=== PATIENT | female | born 2000 | race Caucasian/White ===

== ENCOUNTER 2024-06-01 16:00 | Outpatient (AMB) | payer OTHER, SELFPAY ==
--- NOTE | 2024-06-01 16:07 | A.OFFPC_ITS ---
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 Required: No Accompanied by: Self / Same As Patient Allergies amoxicillin Allergy (Mild, Verified 06/01/24 16:41) Hives Medication List - Last Reconciled 06/01/24 by Destiny Posey PA-C cetirizine 10 mg PO DAILY clascoterone 1% (Winlevi) 1 appl topical DAILY montelukast 10 mg PO QPM norethindrone-ethin estradiol 1-35 mg-mcg (21) (Nortrel) 1 tab PO DAILY rizatriptan mg PO spironolactone 50 mg PO BID topiramate 100 mg PO DAILY Tobacco use date assessed: 06/01/24 Dental Screening Dental Screen Date: 06/01/24 Did you have a dental visit in the last 12 months?: Yes Did you have a dental problem in the last 6 months where you did not have access to dental care?: No Was dental information given to patient?: Patient has dentist HPI establish care HPI Details The patient is a 24-year-old female presenting published a new primary care provider and to discuss her chronic medical conditions. Patient has a past medical history of chronic migraines, managed with topiramate and spironolactone along with PRN rizatriptan that she has not started. The patient describes migraines as frequent and severe, resistant to current medication regimens, warranting further evaluation including neurology referral and brain imaging, as no previous scans have been conducted. The medication history reveals previously higher doses of spironolactone leading to hypotension and fainting episodes. Accompanying medical conditions include history of controlled asthma, mild seasonal allergies, and acne managed with spironolactone as well. 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 A right shoulder mole has recently become problematic, indicated by bleeding warranting possible dermatologic assessment; and an ENT referral is required for an observed tympanic membrane cyst. 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 - Exercise: Implicitly active due to ret ail job duties; no structured exercise regimen documented. - Family: Single and residing possibly w the [facility] family based on the presence of guardian participation historically in medical appointments. - Medication: Routinely uses spironolact one, topiramate, almotriptan, and combines with a regular oral contraceptive pill. 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 Mother Family history of thyroid problem Social History Housing: House Alcohol intake: current Alcohol intake frequency: holidays/special occasions only Patient Tobacco Use Status: Never used Tobacco service: No Current occupational status: employed Cognitive needs: No Hearing needs: No Vision needs: Yes (rx contacts/glasses) Questionnaire PHQ-9 Over the last 2 weeks, how often have you been bothered by any of the following problems? 1. Little interest or pleasure in doing things: not at all 2. Feeling down, depressed, or hopeless: not at all 3. Trouble falling or staying asleep, or sleeping too much: not at all 4. Feeling tired or having little energy: not at all 5. Poor appetite or overeating: not at all 6. Feeling bad about yourself - or that you are a failure or have let yourself or your family down: not at all 7. Trouble concentrating on things, such as reading the newspaper or watching television: not at all 8. Moving or speaking so slowly that other people could have noticed. Or the opposite - being so fidgety or restless that you have been moving around a lot more than usual: not at all 9. Thoughts that you would be better off or of hurting yourself in some way: not at all Total score: 0 Depression Screening Interpretation: Negative Depression Screening Done: Yes 24668 - PHQ-9 Billing: Yes Source: Developed by Drs. Durga Walters, Tricia Osullivan, Jason Jacobs and colleagues, with an educational jillian from [employer]. Thrive Questionnaire Date Thrive assessed: 06/01/24 I am a: Patient What is your living situation today?: I have a steady place to live Within the past 12 months, did the food you bought not last and you didn't have the money to get more?: Never true Within the past 12 months, did you worry whether your food would run out before you got money to buy more?: Never true Do you have trouble paying for medicines?: No Do you have trouble getting transportation to medical appointments?: No Do you have trouble paying your heating and electricity bill?: No Do you have trouble taking care of your child, family member or friend?: No Do you have trouble with day-to-day activities such as bathing, preparing meals, shopping, managing finances, etc.?: No Are you currently unemployed and looking for a job?: No Are you interested in more education?: No Please select the resources that you would like help with: None THRIVE Score: 0 AUDIT C Alcohol Use Questionnaire (AUDIT-C) 1. How often do you have a drink containing alcohol?: Monthly or less 2. How many drinks containing alcohol do you have on a typical day when you are drinking?: 1 or 2 3. How often do you have six or more drinks on one occasion?: Never Total Score: 1 Score Reviewed/Action Taken: No GEORGE-7 AMB Questionnaire GEORGE-7 Date GEORGE - 7 assessed: 06/01/24 Feeling nervous, anxious, or on edge: 2 = More than half the days Not being able to stop or control worryin = More than half the days Worrying too much about different things: 2 = More than half the days Trouble relaxin = Not at all Being so restless that it is hard to sit still: 0 = Not at all Becoming easily annoyed or irritable: 0 = Not at all Feeling afraid as if something awful might happen: 0 = Not at all Total GEORGE-7 score (0-4 normal; 5-9 mild; 10-14 moderate; 15-21 severe): 6 Source: Developed by Tricia Cxo Kurt Kroenke and colleagues, with an educational jillian from [employer]. GEORGE-7 Assessment Billing GEORGE-7 Assessment Tool: GEORGE-7 Assessment 25643 Review of Systems Const Details: - Respiratory: Denies recent exacerbations of asthma. - Neurological: Reports frequent severe migraines. - Dermatologic: Reports mole on shoulder with recent bleeding. - Cardiovascular: Denies chest pain but has reported past fainting episodes. - Endocrine: Family history of thyroid issues and diabetes. - ENT: Notes tympanic membrane cyst observed, denies ear pain or recurrent ear infection. Physical exam (Primary Care) Vital Signs: Last Vital Signs Temp 97.7 F 06/01/24 16:26 Pulse 84 06/01/24 16:26 Resp 16 06/01/24 16:26 BP 122/80 06/01/24 16:26 Pulse Ox 99 06/01/24 16:26 Oxygen Delivery Method Room Air 06/01/24 16:26 Care Plan Goal for BP management: <130/90 at Goal BMI result Body Mass Index 26.5 BMI Assessment/Plan discussion: High BMI High, discussed plan: lifestyle, weight reduction, dietary, physical activity, alcohol moderation and other Tobacco/Smoking Status: Tobacco use Status Tobacco use date assessed 06/01/24 06/01/24 16:09 Patient Tobacco Use Status Never used Tobacco 06/01/24 16:34 PHQ-9: PHQ-9 Score PHQ-9: Total score 0 06/01/24 16:34 Depression Screening Interpretation: Negative Thrive Assessment: Date of Thrive Assessment Date Thrive assessed 06/01/24 06/01/24 16:09 Const Other: Appearance: Alert. Oriented X3. No acute distress. Head: Normal external exam. Normocephalic. Atraumatic. Eyes: Pupils are equal, round, and reactive to light. Extraocular movements intact. Conjunctiva and sclera normal. Eyelids normal. Ears: External auditory canal normal. Tympanic membranes normal. Noted a large cyst in the ear canal, not on the eardrum. Throat: Pharynx normal. Uvula midline. Moist mucous membranes. Neck: Normal inspection. Neck supple. Full range of motion. No adenopathy. Thyroid Normal. No meningeal signs. No neck mass noted. Cardiovascular: Normal heart rate and rhythm. Heart sound normal. No murmurs noted. Pulses normal throughout. Respiratory: No respiratory distress. Painless inspiration. Breath sounds normal. No wheezes/rales/rhonchi noted. Chest nontender. No accessory muscle usage noted or decreased air movement noted. Abdomen: Soft and nontender. Bowel sounds normal in all 4 quadrants. No distention noted. No organomegaly noted. No visible injury noted. Back: No costovertebral angle tenderness. Full range of motion noted. Skin: Skin warm and dry. Normal skin color. Normal skin turgor. No rashes/lesions/lacerations noted. Noted a mole on the right shoulder that has started bleeding. Extremities: No lower extremity edema. Extremities exhibit normal range of motion. Extremities nontender. History of broken ankles, sometimes experiences swelling. Neuro: Oriented X 3. No motor deficit. No sensory deficit. Reflexes normal. Coding Level of Care Code New Pt Level 4 (06852) Complex EM visit Add On G2211 Diagnoses Establishing care with new doctor, encounter for Z76.89 Migraine headache G43.909 Cervical cancer C53.9 Cyst of ear canal Q18.1 Acne L70.9 Carrier of hemochromatosis HFE gene mutation Z14.8 Skin lesion of right arm L98.9 Family history of diabetes mellitus Z83.3 Overweight with body mass index (BMI) of 26 to 26.9 in adult E66.3; Z68.26 Additional Codes PHQ-9 - 11811 - PHQ-9 Billing: Yes ([id number]) GEORGE-7 Assessment Billing - GEORGE-7 Assessment Tool: GEORGE-7 Assessment 99407 ([id number]) Assessment & Plan Assessment & Plan (1) Establishing care with new doctor, encounter for: Code(s): Z76.89 - Persons encountering health services in other specified circumstances Category: Medical Plan: Patient presenting for her 1st appointment to establish a new primary care provider. (2) Migraine headache: Code(s): G43.909 - Migraine, unspecified, not intractable, without status migrainosus Category: Medical Plan: See neurology for evaluation; order CT scan of brain; consider magnesium for migraine prevention. Patient to continue her spironolactone, topiramate and rizatriptan as prescribed until she is seen by Neurology. Condition is chronic and stable continue to monitor. (3) Cervical cancer: Code(s): C53.9 - Malignant neoplasm of cervix uteri, unspecified Category: Medical Plan: Refer to gynecology for evaluation; arrange for Pap smear. (4) Cyst of ear canal: Code(s): Q18.1 - Preauricular sinus and cyst Category: Medical Plan: Refer to ENT for assessment and CT scan of brain/mastoids. Condition is new and stable will continue to monitor. (5) Acne: Code(s): L70.9 - Acne, unspecified Category: Medical Plan: Maintains current spironolactone regimen for acne. Patient to continue being followed by Dermatology. Condition is chronic and stable continue to monitor. (6) Carrier of hemochromatosis HFE gene mutation: Code(s): Z14.8 - Genetic carrier of other disease Category: Medical Plan: Monitor iron levels; no immediate intervention needed. Condition is chronic and stable continue to monitor. (7) Skin lesion of right arm: Code(s): L98.9 - Disorder of the skin and subcutaneous tissue, unspecified Category: Medical Plan: For bleeding mole patient to follow-up with dermatology as scheduled. Condition is chronic and stable continue to monitor. (8) Family history of diabetes mellitus: Code(s): Z83.3 - Family history of diabetes mellitus Category: Medical Plan: Will assess for diabetes as patient has a family history of diabetes although she denies any acute diabetic related complaints at this time. (9) Overweight with body mass index (BMI) of 26 to 26.9 in adult: Code(s): E66.3 - Overweight; Z68.26 - Body mass index [BMI] 26.0-26.9, adult Category: Medical Plan: Patient to improve her diet and exercise regimen. Condition is chronic and stable continue to monitor. Plan Plan Patient was informed and verbally consented to the use of an ambient scribe for clinic note documentation during this visit. 1. Asthma Asthma stable; no change to medications. 2. Tympanic Membrane Cyst Refer to ENT for assessment and possible imaging. 3. Genetic carrier of other disease Monitor iron levels; no immediate intervention needed. 4. Right Shoulder Mole Dermatology referral for evaluation of bleeding mole. 5. Essential Hypertension Advise morning blood pressure monitoring; consider dosage adjustment of spi ronolactone based on BP readings. 6. Atypical Sexual Development Refer to gynecology for evaluation; arrange for Pap smear. 7. Acne Maintains current spironolactone regimen for acne. 8. Migraine See neurology for evaluation; order CT scan of brain; consider magnesium for migraine prevention. I discussed with the patient the importance of obtaining neurologic assessment due to her chronic migraines and lack of significant relief from current therapy. We reviewed the potential side effects of her existing medications and the rationale for considering a magnesium supplement as preventative therapy for migraines. A CT scan was order to examine potential underlying cerebral causes. We discussed her history of hypotensive episodes linked to spironolactone for acne management and emphasized the importance of monitoring her blood pressure, particularly upon waking. The patient consented to have referrals made to both ENT for a tympanic membrane cyst and dermatology for a suspicious mole. Lastly, we agreed on the necessity of a gynecological consult given her chronic use of contraceptives without a prior Pap smear and the importance of maintaining basilio ance regarding her carrier status for hemachromatosis using monitored iron assessments. Orders: Orders CT head/brain wo IV con Today G43.909 - Migraine, unspecified, not intractable, without status migrainosus Complete Blood Count Auto Diff Today Z00.00 - Encounter for general adult medical examination without abnormal findings Comprehensive Auxier. Panel Fast Today Z00.00 - Encounter for general adult medical examination without abnormal findings C Reactive Protein Today Z00.00 - Encounter for general adult medical examination without abnormal findings Ferritin Today D64.9 - Anemia, unspecified Hemoglobin A1c Today Z00.00 - Encounter for general adult medical examination without abnormal findings IRON PROFILE Today D64.9 - Anemia, unspecified Lipid Panel Today Z00.00 - Encounter for general adult medical examination without abnormal findings Liver Panel Today Z00.00 - Encounter for general adult medical examination without abnormal findings Vitamin A Today Z00.00 - Encounter for general adult medical examination without abnormal findings Vitamin B1 Today Z00.00 - Encounter for general adult medical examination without abnormal findings Zinc Today Z00.00 - Encounter for general adult medical examination without abnormal findings Estrogen Today Z00.00 - Encounter for general adult medical examination without abnormal findings Erythrocyte Sedimentation Rate Today Z00.00 - Encounter for general adult medical examination without abnormal findings Magnesium Today Z00.00 - Encounter for general adult medical examination without abnormal findings TSH reflex Free T4 Today Z00.00 - Encounter for general adult medical examination without abnormal findings Vitamin B12 and Folate Today Z00.00 - Encounter for general adult medical examination without abnormal findings Vitamin D 25-OH Total Today Z00.00 - Encounter for general adult medical examination without abnormal findings Testosterone, Total Today Z00.00 - Encounter for general adult medical examination without abnormal findings Prolactin Today Z00.00 - Encounter for general adult medical examination without abnormal findings Progesterone Today Z00.00 - Encounter for general adult medical examination without abnormal findings CT mastoid Today Q18.1 - Preauricular sinus and cyst 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[employer] GENERATING Referral C53.9 - Malignant neoplasm of cervix uteri, unspecified Neurology Referral G43.909 - Migraine, unspecified, not intractable, without status migrainosus Ear/Nose/Throat Referral Q18.1 - Preauricular sinus and cyst Medications: New cetirizine 10 mg PO DAILY 90 tabs 1RF montelukast 10 mg PO QPM 90 tabs 1RF spironolactone 50 mg PO BID 90 days 180 tabs 1RF topiramate 100 mg PO DAILY 90 tabs 1RF norethindrone-ethin estradiol 1-35 mg-mcg (21) (Nortrel) 1 tab PO DAILY 63 tabs 1RF clascoterone 1% (Winlevi) 1 appl topical DAILY 60 grams 1RF Patient Instructions: - Monitor your blood pressure in the morning regularly; adjust medication based on readings as advised. - Attend neurology consultation for further migraine management. - Schedule and attend dermatology appointment regarding the bleeding mole. - Follow up with ENT for evaluation of the cyst in your ear. - Make an appointment with the ordnance truck installation supervisor recommended for a woman?s examination. - Consider supplementing with magnesium as discussed for migraine prevention. - Continue with your current acne medication, taking care to note any side effects. - Make sure you go for your lab tests at any local labs suggested when fasting. - Return in three months for a follow-up on your blood pressure and migraine management. - Maintain a healthy lifestyle and monitor for any new symptoms.
[2024-06-01 16:26] VITALS: BP 122/80; PULSE 84; RESP 16; TEMP 36.5; O2SAT 99; BMI 26.5
--- OUTSIDE RECORDS SUMMARY | 2024-06-01 18:39 | XMS_ITS | Encounter Summary ---
Author Organization [facility] Address [address] [place] [address] Phone Care Team Providers Care Reservations Sales Supervisor Name Role Phone Catherine Aj MD Primary Care Provider Reason for Visit * Reason Comments Med Refill Encounter Details Date Type Department Care Team (Late st Contact Info) Description 08/14/2018 Refill [facility] [address] [place] [address] Betsy Chauhan, DO Concussion without loss of consciousness, subsequent encounter Social History Tobacco Use Types Packs/Day Years Used Date Smoking Tobacco: Never Comments:Never Smoker Alcohol Use Standard Drinks/Week Comments No 0 (1 standard drink = 0.6 oz pur e alcohol) Comments Unknown Sex and Gender Information Value Date Recorded Sex Assigned at Not on file Legal Sex Female 6:35 PM EDT Gender Identity Not on file Sexual Orientation Straight 10/14/2018 2: 58 PM EDT documented as of this encounter Miscellaneous Notes * Telephone Encounter - Sadia Bal LPN - 08/14/2018 1:20 PM EDT Last [facility] 10/08/17 Next appt scheduled for 10/14/18 documented in this encounter Plan of Treatment Not on file documented as of this encounter Visit Diagnoses Diagnosis Concussion without loss of consciousness, subsequent encounter documented in this encounter Care Teams Reservations Sales Supervisor Relationship Specialty Start Date End Date Catherine Aj MD PCP - General Pediatrics 05/26/20 documented as of this encounter
--- OUTSIDE RECORDS SUMMARY | 2024-06-01 18:39 | XMS_ITS | Encounter Summary ---
Author Organization [facility] Address [address] [place] [address] Phone Care Team Providers Care Fur Dyer Name Role Phone Catherine Aj MD Primary Care Provider [phone] Reason for Visit * Reason Comments Med Refill Encounter Details Date Type Department Care Team (Late st Contact Info) Description 09/01/2018 Refill [facility] [address] [place] [address] Betsy Chauhan DO Other headache syndrome; Dysmenorrhea Social History Tobacco Use Types Packs/Day Years [...] PM EDT documented as of this encounter Plan of Treatment Not on file documented as of this encounter Visit Diagnoses Diagnosis Other headache syndrome Dysmenorrhea documented in this encounter Care Teams Fur Dyer Relationship Specialty Start Date End Date Catherine Aj MD PCP - General Pediatrics 05/26/20 documented as of this encounter
--- OUTSIDE RECORDS SUMMARY | 2024-06-01 18:39 | XMS_ITS | Encounter Summary ---
Author Organization [facility] Address [address] [place] [address] Phone Care Team Providers Care Centerless Grinding Machine Adjuster Name Role Phone Catherine Aj MD Primary Care Provider [phone] Reason for Visit * Reason Onset Date Comments Med Refill Med Refill 03/27/2018 Encounter Details Date Type Department Care Team (Late st Contact Info) Description 02/15/2018 Refill [facility] [address] [place] [address] Betsy Chauhan, Social History Tobacco Use Types Packs/Day Years [...] encounter Miscellaneous Notes * Telephone Encounter - Radha Berkowitz MA - 02/16/2018 8:34 AM EST Pt needs the increased dose of 10 mg. Pt is 17 yrs of age. MQ documented in this encounter Plan of Treatment Not on file documented as of this encounter Visit Diagnoses Not on filedocumented in this encounter Care Teams Centerless Grinding Machine Adjuster Relationship Specialty Start Date End Date Catherine Aj MD PCP - General Pediatrics 05/26/20 documented as of this encounter
--- OUTSIDE RECORDS SUMMARY | 2024-06-01 18:39 | XMS_ITS | Encounter Summary ---
Author Organization [facility] Address [address] [place] [address] Phone Care Team Providers Care Criminal Research Specialist Name Role Phone Catherine Aj MD Primary Care Provider [phone] Encounter Details Date Type Department Care Team (Late st Contact Info) Description 10/29/2012 Conversion Encounter [facility] [address] [facility] [place] [id number] Social History Tobacco Use Types Packs/Day Years Used Date Smoking Tobacco: Never Assessed Comments Unknown Sex and Gender Information Value Date Recorded Sex Assigned at Not on file Legal Sex Female 6:35 PM EDT Gender Identity Not on file Sexual Orientation Straight 10/14/2018 2: 58 PM EDT documented as of this encounter Plan of Treatment Not on file documented as of this encounter Visit Diagnoses Not on filedocumented in this encounter Care Teams Criminal Research Specialist Relationship Specialty Start Date End Date Catherine Aj MD PCP - General Pediatrics 05/26/20 documented as of this encounter
--- OUTSIDE RECORDS SUMMARY | 2024-06-01 18:39 | XMS_ITS | Clinical Summary ---
Author Organization [facility] Address [address] [place] [address] Phone Care Team Providers Care Looper Operator Name Role Phone Catherine Aj MD Primary Care Provider [phone] Allergies Active Allergy Reactions Criticality Noted Date Comments Amoxicillin Rash Low 04/05/2017 Dust Mite Extract Gramineae Pollens 10/08/2017 Molds & Smuts Pollen Extract Medications albuterol HFA (VENTOLIN HFA) 108 (90 Base) MCG/ACT inhaler Inhale 90 mcg. 07/17/19 16 Active acetaminophen 500 MG tablet Take 500 mg by mouth every 6 (six) hours as needed for mild pain. Active albuterol (2.5 MG/3ML) 0.083% nebulizer solutionIndicatio ns:Mild intermittent asthma with exacerbation Take 3 mL (2.5 mg total) by nebulization every 4 (four) hours as needed for wheezing or shortness of breath. 1 Package 1 11/05/19 19 Active Dapsone (Aczone) 7.5 % gelIndications:Ot her acne Apply 1 application topically daily. 60 g 2 02/22/19 20 Active gentamicin 0.3 % ophthalmic solutionIndicatio ns:Chalazion of right upper eyelid Administer 1 drop into the right eye 4 (four) times a day. 5 mL 12/17/19 20 Active norethindrone-eth inyl estradiol (Nortrel , 28,) 1-35 MG-MCG per tabletIndications :Encounter for surveillance of contraceptive pills Take 1 tablet by mouth once daily. 84 tablet 3 01/05/20 Active cetirizine 10 MG tabletIndications :Seasonal allergic rhinitis due to other allergic trigger TAKE ONE TABLET BY MOUTH EVERY DAY 30 tablet 3 06/08/19 Active topiramate 25 MG tabletIndications :Migraine without aura and without status migrainosus, not intractable Take 1 tablet (25 mg total) by mouth once daily. Along with the 50 mg tablet 30 tablet 3 06/30/19 Active topiramate 50 MG tabletIndications :Intractable chronic migraine without aura and without status migrainosus Take 1 tablet (50 mg total) by mouth once daily. 30 tablet 3 06/30/19 21 Active propranolol 10 MG tabletIndications :Post-concussion headache Take 1 tablet (10 mg total) by mouth 2 (two) times a day. 60 tablet 2 07/29/19 Active spironolactone 100 MG tabletIndications :Other acne Take 1 tablet (100 mg total) by mouth once daily. 30 tablet 3 08/12/19 Active montelukast 10 MG tabletIndications :Non-seasonal allergic rhinitis due to other allergic trigger Take 1 tablet (10 mg total) by mouth nightly. 30 tablet 3 08/12/19 21 Active Active Problems Patient Care Coordination No te Formatting of this note migh t be different from the original. Tcm to book asthma recheck appt no answer vm left. -vb 05/27/19 Problem Noted Date Diagnosed Date Migraine with aura 06/18/2017 Overview (10/14/2017): Classic migraine (346.00) Onset: 06/18/2017 Added by: Betsy Chauhan Assessment & Plan (01/05/2020 10:10 PM EST): Stable on 75 mg of Topamax Assessment & Plan (10/14/2017 1:36 PM EDT): Controlled on Topamax Generalized anxiety disorder 03/13/2016 Overview (10/14/2017): Anxiety, generalized (300.02) Onset: 03/13/2016 Added by: Franny Jimenes Other acne 11/11/2015 Overview (10/14/2017): Acne (706.1) Onset: 11/11/2015 Added by: Betsy Chauhan Other atopic dermatitis and related conditions 0 04/26/2014 Overview (10/14/2017): Eczema (691.8) Onset: 04/26/2014 Added by: Ashlee Leyva Extrinsic asthma 02/05/2013 Overview (10/14/2017): Asthma (493.00) Onset: 02/05/2013 Added by: Dalia Piña Immunizations Immunization Administration Dates Next Due DTaP 5 05/23/2006, 3,2001,08/24,2001 HPV, Quadrivalent 02/05/2013,09/28/2012,07/25/19 13 Hep B, ped/adol 01/04/2002,2001,2001 Hib (PRP-T) 06/14/2002, 2,2001,06/11 IPV 05/23/2006, 3,2001,06/11 Influenza, injectable, quadr ivalent, preservative free 12/17/2019,01/01/2014,01/08/2013 Influenza, injectable, trivalent 12/19/2011,11/10 MMR 05/29/2005,06/14/2002 Meningococcal Conj (Menactra) MCV4P 10/14/2018,0 07/24/2012 Pneumococcal Conjugate 10/12/2002,2001,2001,06/11 Tdap 06/22/2012 Varicella 05/26/2008,04/08/2002 Family History Medical History Relation Name Comments Hemochromatosis Father Holden Heart disease (Premature) Maternal Grandfather No Known Problems Maternal Grandmother Asthma Mother Vida Heart disease (Premature) Paternal Grandfather No Known Problems Paternal Grandmother Asthma Sister Breanna Relation Name Status Comments Father Vincent Alive Maternal Grandfather Maternal Grandmother Mother Vida Alive Paternal Grandfather Paternal Grandmother Sister Breanna Alive Social History Tobacco Use Types Packs/Day Years Used Date Smoking Tobacco: Never Tobacco Cessation:Counseling Given: No Comments:Never Smoker Alcohol Use Standard Drinks/Week Comments No 0 (1 standard drink = 0.6 oz pur e alcohol) Hunger/Food Answer Date Recorded In the last 12 months, did y ou or your family ever eat less than you felt you should because there wasn't enough money for food? No 01/05/2020 Stable Housing Answer Date Recorded Are you worried that in the next 2 months you may not have stable housing? No 01/05/2020 Transportation Concerns Answer Date Rec orded In the last 12 months, have you or your family ever had to go without healthcare because you didn't have a way to get there? No 01/05/2020 Hazards in Home Answer Date Recorded Think about the place you li ve. Do you have problems with any of the following? Pests (mice or roaches), mold, no/not working smoke detectors, water leaks, no window guards. No 2019 Financing Utilities Answer Date Recorde d In the last 12 months, has t he electric, gas, oil, or water company threatened to shut off your services in your home? No 01/05/2020 Safety at Home Answer Date Recorded Are you or your family worried about feeling saf e in your home? No 01/05/2020 Outside Support Answer Date Recorded Do you feel that you need mo re support from other people or programs to help you care for yourself or your family? No 01/05/2020 Understanding Health Concerns Answer Da te Recorded Do you need help understandi ng your or your child's healthcare needs (diagnosis, medications, plan, etc.)? No 01/05/2020 Financing Health Concerns Answer Date R ecorded In the last 12 months, was t here a time when your child needed to see a doctor or get medications or supplies but could not because of cost? No 01/05/2020 Missing School or Work Answer Date Sam rded Did you or your child miss s chool or work because of a health problem that could have been avoided? No 01/05/2020 Comments No Sex and Gender Information Value Date Recorded Sex Assigned at Not on file Legal Sex Female 6:35 PM EDT Gender Identity Not on file Sexual Orientation Straight 10/14/2018 2: 58 PM EDT Last Filed Vital Signs Vital Sign Reading Time Taken Comments Blood Pressure 100/72 01/05/2020 9:56 AM EST Pulse 87 01/05/2020 9:56 AM EST Temperature 36.2 ??C (97.2 ??F) 01/05/2020 9:56 AM ES T Respiratory Rate - - Oxygen Saturation 99% 11/04/2018 3:12 PM EDT Inhaled Oxygen Concentration - - Weight 62.7 kg (138 lb 4.8 oz) 01/05/2020 9:56 A M EST Height 160 cm (5' 3 ) 01/05/2020 9:56 AM EST Body Mass Index 24.5 01/05/2020 9:56 AM EST Plan of Treatment Health Maintenance Due Date Last Done Comments Men B Vaccine (1 of 2 - Standard) 2017 DTaP,Tdap,and Td Vaccines (7 - Td or Tdap) 06/22/2022 06/22/2012, 05/23/2006, 10/12/2002, Additional history exists Influenza Vaccines (#1) 2023 12/17/19, 01/01/2014, 01/08/2013, Additional history exists COVID-19 Vaccine ( season) 2023 Hepatitis B Vaccines Completed 01/04/2002, 2001, 2001 HIB Vaccines Completed 06/14/2002, 09/12, 2001, Additional history exists Pneumococcal Vaccine Completed 10/12/2002, 2001, 2001, Additional history exists MMR Vaccines Completed 05/29/2005, 06/14/2002 IPV Vaccines Completed 05/23/2006, 03/2002, 2001, Additional history exists Varicella Vaccines Completed 05/26/2008, 04/08/2002 HPV Vaccines Completed 02/05/2013, 09/10, 07/24/2012 Meningococcal Vaccine Completed 10/14/2018, 013 Hepatitis A Vaccines Aged Out No long er eligible based on patient's age to complete this topic Procedures * Due to [place] state law, this organization might not be sharing sensitive test results. Procedure Name Priority Date/Time Associated Diagnosis Comments CHLAMYDIA GC AMP PROBE Routine 01/05/2020 10:05 AM EST Well adult exam from Last 3 Months or Most Recently Relevant to Health Maintenance Results * Due to [place] state law, this organization might not be sharing sensitive test results. * CHLAMYDIA GC AMP PROBE (01/05/2020 10:05 AM EST) Chlamydia Trachomatis, Amplified NEGATIVE (NEG) [facility] Comment: No Chlamydia Trachomatis RNA detected in this patient's sample ? (REFERENCE RANGE/NORMAL VALUE: NOT DETECTED) ? Note: This test uses union laborer- mediated amplification method to detect rRNA from C. Trachomatis N.GONORRHOEAE AMP PROBE NEGATIVE (NEG) [facility] Comment: No Neisseria Gonorrhoeae RNA detected in this patient's sample ? (REFERENCE RANGE/NORMAL VALUE: NOT DETECTED) ? NOTE: This test uses union laborer-mediated amplification method to detect rRNA from N.Gonorrhoeae. A negative result does not preclude infection. In the case of a negative urine result, testing of an endocervical(female) or urethral (male) specimen is recommended if there is high clinical suspicion of infection. Due to very high sensitivity of Nucleic Acid Amplification Test, false positive results may occur. Therefore, specimen handling is extremely important. In patients in whom the disease is unlikely, additional sample for testing should be considered after an initial positive result. The performance characteristics of this test have not been evaluated in children. The Aptima Combo2 assay is not intended for the evaluation of suspected sexual abuse or for other medico-legal indications. The ordering provider should assess if the patient had consensual sex without risk of sexual abuse. Consult the [facility] if needed. Contact phone number . Therapeutic failure or success cannot be determined with the Aptima Combo2 assay since nucleic acid may persist following appropriate antimicrobial therapy. The Centers for Disease Control and Prevention (CDC) recommends confirmatory retesting using culture or a different nucleic acid amplification test when positive results occur, if indicated. CHLAM/GC AMP PROBE SPEC TYPE VAGINAL SPECIMEN [facility] Comment: Testing performed or reported by [facility], [facility], a Service of [facility], [place] [address] Pasha Whitaker MD, Salvage Winder Swab (Vagina) 01/05/2020 10: 05 AM EST 01/06/2020 12:30 AM EST Betsy Chauhan DO LAB MICROBIOLOGY - GENERAL ORDE JENNY Final Result [facility] from Last 3 Months or Most Recently Relevant to Health Maintenance Insurance [facility] [address] Care Teams Looper Operator Relationship Specialty Start Date End Date Catherine Aj MD PCP - General Pediatrics 05/26/20
--- OUTSIDE RECORDS SUMMARY | 2024-06-01 18:39 | XMS_ITS | Encounter Summary ---
Author Organization [facility] Address [address] [place] [address] Phone Care Team Providers Care Erp Project Manager Name Role Phone Catherine Aj MD Primary Care Provider [phone] Reason for Visit * Reason Comments Med Refill Encounter Details Date Type Department Care Team (Late st Contact Info) Description 08/21/2017 Refill [facility] [address] [place] [address] Betsy Chauhan, Encounter for surveillance of contraceptive pills (Primary Dx) Social History Tobacco Use Types Packs/Day Years Used Date Smoking Tobacco: Never Comments:Never Smoker Comments Unknown Sex and Gender Information Value Date Recorded Sex Assigned at Not on file Legal Sex Female 6:35 PM EDT Gender Identity Not on file Sexual Orientation Straight 10/14/2018 2: 58 PM EDT documented as of this encounter Miscellaneous Notes * Telephone Encounter - Sabiha Jamil LPN - 08/21/2017 1:21 PM EDT [facility] request a med r/f on pts ocp Last [facility] 09/29/16 Please send script to stop [facility] fortino Rodarte LPN documented in this encounter Plan of Treatment Not on file documented as of this encounter Visit Diagnoses Diagnosis Encounter for surveillance of contraceptive pills- Primary documented in this encounter Care Teams Erp Project Manager Relationship Specialty Start Date End Date Catherine Aj MD PCP - General Pediatrics 05/26/20 documented as of this encounter
--- OUTSIDE RECORDS SUMMARY | 2024-06-01 18:39 | XMS_ITS | Encounter Summary ---
Author Organization [facility] Address [address] [place] [address] Phone Care Team Providers Care Metal Numerical Tool Programmer Name Role Phone Catherine Aj MD Primary Care Provider [phone] Reason for Visit * Reason Comments Med Refill Encounter Details Date Type Department Care Team (Late st Contact Info) Description 11/29/2017 Refill [facility] [address] [place] [address] Betsy Chauhan, Social History Tobacco Use Types [...] on filedocumented in this encounter Care Teams Metal Numerical Tool Programmer Relationship Specialty Start Date End Date Catherine Aj MD PCP - General Pediatrics 05/26/20 documented as of this encounter
--- OUTSIDE RECORDS SUMMARY | 2024-06-01 18:39 | XMS_ITS | Encounter Summary ---
Author Organization [facility] Address [address] [place] [address] Phone Care Team Providers Care Spd Manager Name Role Phone Catherine Aj MD Primary Care Provider [phone] Reason for Visit * Reason Comments Med Refill Encounter Details Date Type Department Care Team (Late st Contact Info) Description 11/05/2018 Refill [facility] [address] [place] [address] Betsy Chauhan DO Non-seasonal allergic rhinitis due to other allergic trigger Social History Tobacco Use Types Packs/Day Years Used Date Smoking Tobacco: Never Comments:Never Smoker Alcohol Use Standard Drinks/Week Comments No 0 (1 standard drink = 0.6 oz pur e alcohol) Hunger/Food Answer Date Recorded No 10/14/2018 Stable Housing Answer Date Recorded 0 10/14/2018 Transportation Concerns Answer Date Rec orded No 10/14/2018 Hazards in Home Answer Date Recorded No 10/14/2018 Financing Utilities Answer Date Recorde d No 10/14/2018 Safety at Home Answer Date Recorded No 10/14/2018 Outside Support Answer Date Recorded No 10/14/2018 Understanding Health Concerns Answer Da te Recorded No 10/14/2018 Financing Health Concerns Answer Date R ecorded No 10/14/2018 Missing School or Work Answer Date Sam rded No 10/14/2018 Comments Unknown Sex and Gender Information Value Date Recorded Sex Assigned at Not on file Legal Sex Female 6:35 PM EDT Gender Identity Not on file Sexual Orientation Straight 10/14/2018 2: 58 PM EDT documented as of this encounter Miscellaneous Notes * Telephone Encounter - Sadia Bal LPN - 11/06/2018 7:59 AM EDT Last [facility] 10/14/18 documented in this encounter Plan of Treatment Not on file documented as of this encounter Visit Diagnoses Diagnosis Non-seasonal allergic rhinitis due to other allergic trigger documented in this encounter Care Teams Spd Manager Relationship Specialty Start Date End Date Catherine Aj MD PCP - General Pediatrics 05/26/20 documented as of this encounter
--- OUTSIDE RECORDS SUMMARY | 2024-06-01 18:39 | XMS_ITS | Encounter Summary ---
Author Organization [facility] Address [address] [place] [address] Phone Care Team Providers Care Marketing Finance Manager Name Role Phone Catherine Aj MD Primary Care Provider [phone] Reason for Visit * Reason Comments Med Refill Encounter Details Date Type Department Care Team (Late st Contact Info) Description 02/12/2020 Refill [facility] [address] [place] [address] Betsy Chauhan, Intractable chronic migraine without aura and without status migrainosus Social History Tobacco Use Types Packs/Day Years [...] could have been avoided? No 01/05/2020 Comments Unknown Sex and Gender Information Value Date Recorded Sex Assigned at Not on file Legal Sex Female 6:35 PM EDT Gender Identity Not on file Sexual Orientation Straight 10/14/2018 2: 58 PM EDT documented as of this encounter Plan of Treatment Not on file documented as of this encounter Visit Diagnoses Diagnosis Intractable chronic migraine without aura and without status migrainosus documented in this encounter Care Teams Marketing Finance Manager Relationship Specialty Start Date End Date Catherine Aj MD PCP - General Pediatrics 05/26/20 documented as of this encounter
--- OUTSIDE RECORDS SUMMARY | 2024-06-01 18:39 | XMS_ITS | Encounter Summary ---
Author Organization [facility] Address [address] [place] [address] Phone Care Team Providers Care School Curriculum Developer Name Role Phone Catherine Aj MD Primary Care Provider [phone] Reason for Visit * Reason Comments Med Refill Encounter Details Date Type Department Care Team (Late st Contact Info) Description 07/16/2018 Refill [facility] [address] [place] [address] Betsy Chauhan DO Dysmenorrhea; Other headache syndrome Social History Tobacco Use Types Packs/Day Years [...] encounter Miscellaneous Notes * Telephone Encounter - Suyapa Whitmore [place] - 07/17/2018 12:19 PM EDT Last [facility] 10/08/17 Medication is due documented in this encounter Plan of Treatment Not on file documented as of this encounter Visit Diagnoses Diagnosis Dysmenorrhea Other headache syndrome documented in this encounter Care Teams School Curriculum Developer Relationship Specialty Start Date End Date Catherine Aj MD PCP - General Pediatrics 05/26/20 documented as of this encounter
--- OUTSIDE RECORDS SUMMARY | 2024-06-01 18:39 | XMS_ITS | Encounter Summary ---
Author Organization [facility] Address [address] [place] [address] Phone Care Team Providers Care Nursery Helper Name Role Phone Catherine Aj MD Primary Care Provider [phone] Reason for Visit * Reason Comments Med Refill Encounter Details Date Type Department Care Team (Late st Contact Info) Description 10/13/2018 Refill [facility] [address] [place] [address] Betsy Chauhan DO Other acne; Intractable chronic migraine without aura and without [...] of this encounter Visit Diagnoses Diagnosis Other acne Intractable chronic migraine without aura and without status migrainosus documented in this encounter Care Teams Nursery Helper Relationship Specialty Start Date End Date Catherine Aj MD PCP - General Pediatrics 05/26/20 documented as of this encounter
--- OUTSIDE RECORDS SUMMARY | 2024-06-01 18:39 | XMS_ITS | Encounter Summary ---
Author Organization [facility] Address [address] [place] [address] Phone Care Team Providers Care Manager Inpatient Name Role Phone Catherine Aj MD Primary Care Provider [phone] Reason for Visit * Reason Comments Med Refill Encounter Details Date Type Department Care Team (Late st Contact Info) Description 10/25/2019 Refill [facility] [address] [place] [address] Betsy Chauhan DO Mild intermittent asthma with exacerbation Social History Tobacco Use Types Packs/Day Years Used Date Smoking Tobacco: Never Comments:Never Smoker Alcohol Use Standard Drinks/Week Comments No 0 (1 standard drink = 0.6 oz pur e alcohol) Hunger/Food Answer Date Recorded No 10/14/2018 Stable Housing Answer Date Recorded No 02/11/2019 Transportation Concerns Answer Date Rec orded No [...] as of this encounter Visit Diagnoses Diagnosis Mild intermittent asthma with exacerbation Unspecified asthma, with exacerbation documented in this encounter Care Teams Manager Inpatient Relationship Specialty Start Date End Date Catherine Aj MD PCP - General Pediatrics 05/26/20 documented as of this encounter
== END 2024-06-01 17:03 | disposition home or self-care (01) ==
LOC: HO.HMCSH 16:00
PROVIDERS: PCP Internal Medicine; Visit Provider Physician Assistant Medical
DX: Z76.89 Persons encountering health services in other specified circumstances (principal); G43.909 Migraine, unspecified, not intractable, without status migrainosus; C53.9 Malignant neoplasm of cervix uteri, unspecified; Q18.1 Preauricular sinus and cyst; L70.9 Acne, unspecified; Z14.8 Genetic carrier of other disease; L98.9 Disorder of the skin and subcutaneous tissue, unspecified; Z83.3 Family history of diabetes mellitus; E66.3 Overweight; Z68.26 Body mass index [BMI] 26.0-26.9, adult

== ENCOUNTER → 2024-06-01 16:00 | Outpatient (BNVA) | payer OTHER, SELFPAY | PROVIDERS: PCP Internal Medicine; Visit Provider Physician Assistant Medical | DX: Z76.89 Persons encountering health services in other specified circumstances (principal); G43.909 Migraine, unspecified, not intractable, without status migrainosus; C53.9 Malignant neoplasm of cervix uteri, unspecified; L70.9 Acne, unspecified; L98.9 Disorder of the skin and subcutaneous tissue, unspecified; J45.909 Unspecified asthma, uncomplicated; E66.3 Overweight; Z68.26 Body mass index [BMI] 26.0-26.9, adult; Q18.1 Preauricular sinus and cyst; Z14.8 Genetic carrier of other disease; Z83.3 Family history of diabetes mellitus | CPT/HCPCS: 96127 ==

== ENCOUNTER 2024-06-19 11:08 | Outpatient (REF) | payer OTHER, SELFPAY ==
[2024-06-19 14:10] LABS: MANUAL DIFF FLAG NO
[2024-06-19 14:13] LABS: Basophils Percent Auto 0.6 % (0-2); Eosinophils Absolute Auto 0.2 X10*3/uL (0.0-0.4); Eosinophils Percent Auto 3.5 % (0-4); Hematocrit 39.9 % (37.0-47.0); Hemoglobin 13.1 g/dl (12.0-16.0); Lymphocytes Absolute Auto 2.5 X10*3/uL (1.2-4.9); Mean Corpuscular HGB Conc 32.8 g/dl (31.0-35.0); Mean Corpuscular Hemoglobin 29.4 pg (27.0-33.0); Mean Corpuscular Volume 89.5 fL (80.0-98.0); Mean Platelet Volume 11.5 fL (9.4-12.3); Monocytes Absolute Auto 0.3 X10*3/uL (0.1-1.2); Monocytes Percent Auto 5.2 % (2-11); Neutrophils Absolute Auto 2.2 x10*3/uL (2.0-8.3); Neutrophils Percent Auto 41.7 % (45-73); Platelet Count 265 X10*3/uL (160-400); Red Blood Count 4.46 X10*6/uL (4.20-5.50); Red Cell Distribution Width 12.6 % (11.0-16.0); White Blood Count 5.2 X10*3/uL (4.8-10.8)
[2024-06-19 14:22] LABS: Estimated Average Glucose 97 mg/dL; Hemoglobin A1C 110.1096 umol/L
[2024-06-19 14:31] LABS: Alanine Aminotransferase 14 U/L (0-31); Alkaline Phosphatase 37 U/L (39-117); Anion Gap 13 (12-20); Aspartate Amino Transferase 18 U/L (5-31); Bilirubin Direct 0.3 mg/dL (0.0-0.5); Bilirubin Total 1.1 mg/dL (0.0-1.0); Blood Urea Nitrogen 13 mg/dL (9-16); C Reactive Protein 0.15 mg/dL (< or = 0.50); Carbon Dioxide 19 mmol/L (22-29); Chloride 111 mmol/L (96-108); Cholesterol 208 mg/dL (<200); Estimated Glomerular Filt Rate > 60; Glucose Fasting 85 mg/dL (60-99); HDL Cholesterol 102 mg/dL (>40); Iron 184 mcg/dL (30-160); LDL Cholesterol Calculated 87 mg/dL (<100); Percent Iron Saturation 53 % (15-50); Sodium 139 mmol/L (135-145); Total Iron Binding Capacity 349 mcg/dL (228-428); Total Protein 7.3 g/dL (6.5-8.0); Triglycerides 99 mg/dL (<150); Unsaturated Iron Binding 165 ug/dL
[2024-06-19 14:51] LABS: Ferritin 31 ng/mL (10-122); Vitamin D 25-OH Total 26.6 ng/mL (>30)
[2024-06-19 14:55] LABS: Erythrocyte Sedimentation Rate 6 MM/HR (0-20)
[2024-06-19 14:58] LABS: Folate 11.1 ng/mL (> or = 4.0); Vitamin B12 429 pg/mL (200-900)
[2024-06-21 21:49] LABS: Prolactin 14.7 ng/mL
[2024-06-23 04:54] LABS: Zinc 73 mcg/dL (60-130)
[2024-06-24 20:42] LABS: Estrogen 93 pg/mL
[2024-06-25 16:58] LABS: Testosterone, Total 19 ng/dL (2-45); Vitamin A 76 mcg/dL (38-98)
[2024-06-27 18:48] LABS: Vitamin B1 16 nmol/L (8-30)
[2024-07-03 23:53] LABS: Progesterone <0.1 ng/mL
== END 2024-06-19 11:09 | disposition home or self-care (01) ==
LOC: HO.HMGCLDS 11:08
PROVIDERS: PCP Physician Assistant Medical; Visit Provider Physician Assistant Medical
DX: Z00.00 Encounter for general adult medical examination without abnormal findings (principal); D64.9 Anemia, unspecified; Z13.1 Encounter for screening for diabetes mellitus; Z13.6 Encounter for screening for cardiovascular disorders
CPT/HCPCS: 36415; 80053; 80061; 80076; 82248; 82306; 82607; 82672; 82728; 82746; 83036; 83540; 83735; 84144; 84146; 84403; 84425; 84443; 84590; 84630; 85025; 85652; 86140

== ENCOUNTER 2024-07-06 16:33 | Outpatient (REF) | payer OTHER, SELFPAY | END 2024-07-06 16:34 | disposition home or self-care (01) | LOC: HO.CT 16:33 | PROVIDERS: PCP Physician Assistant Medical; Visit Provider Physician Assistant Medical | DX: Z13.89 Encounter for screening for other disorder (principal) ==

== ENCOUNTER → 2024-09-03 10:28 | Outpatient (BNV) | payer OTHER, SELFPAY | PROVIDERS: PCP Internal Medicine; Referring Provider Internal Medicine; Visit Provider Internal Medicine | DX: E83.110 Hereditary hemochromatosis (principal) | CPT/HCPCS: 99204 ==

== ENCOUNTER 2024-09-10 13:09 | Outpatient (AMB) | payer OTHER, SELFPAY ==
--- OUTSIDE RECORDS SUMMARY | 2024-09-10 13:10 | XMS_ITS | Clinical Summary ---
Author Organization [facility] Address [address] [address] Phone Care Team Providers Care Radius Corner Machine Operator Name Role Phone Betsy Chauhan DO Primary Care Provider [phone] Allergies Active Allergy Reactions Criticality Noted Date Comments Amoxicillin Rash Low 04/05/2017 Bee Pollen 04/10/2020 Grass Pollen-Red Top, Standard 10/08 Mite Extract 04/10/2020 Mold 04/10/2020 Medications oseltamivir (TAMIFLU) 75 mg capsule Take 1 capsule (75 mg total) by mouth 2 (two) times a day. 10 capsule 8 Active Additional Information Patient not taking.Reported on 04/10/2020 predniSONE (DELTASONE) 20 MG tablet Take 1 tablet (20 mg total) by mouth daily. 7 tablet 8 Active Additional Information Patient not taking.Reported on 04/10/2020 montelukast (SINGULAIR) 10 mg tablet Active cetirizine (ZYRTEC) 10 MG tablet Active spironolactone (ALDACTONE) 100 MG tablet Active dapsone (ACZONE) 5 % topical gel Active albuterol 2.5 mg /3 mL (0.083 %) nebulizer solution Inhale 2.5 mg into the lungs daily as needed. 9 Active norethindrone-e thinyl estradiol (NORTREL , 28,) 1-0.035 mg per tablet Take 1 tablet by mouth. 0 Active propranoloL (INDERAL) 10 MG immediate release tablet TAKE ONE TABLET BY MOUTH TWICE A DAY 0 Active topiramate (TOPAMAX) 25 MG tablet Take 25 mg by mouth. 1 Active topiramate (TOPAMAX) 50 MG tablet TAKE ONE TABLET BY MOUTH EVERY DAY 1 Active cetirizine (ZYRTEC) 10 MG tablet TAKE ONE TABLET BY MOUTH EVERY DAY 0 Active dapsone (ACZONE) 7.5 % gel with pump Apply 1 application topically. 0 Active montelukast (SINGULAIR) 10 mg tablet TAKE ONE TABLET BY MOUTH AT BEDTIME 1 Active ibuprofen (ADVIL,MOTRIN) 600 MG tablet Take 1 tablet (600 mg total) by mouth 3 (three) times a day for 3 days. Then tid prn pain/inflammatio n 30 tablet 1 Active Active Problems Problem Noted Date Diagnosed Date Migraine with aura 06/18/2017 Overview (04/10/2020): Classic migraine (346.00) Onset: 06/18/2017 Added by: Betsy Chauhan Last Assessment & Plan: Stable on 75 mg of Topamax Generalized anxiety disorder 03/13/2016 Overview (04/10/2020): Anxiety, generalized (300.02) Onset: 03/13/2016 Added by: Franny Jimenes Other acne 11/11/2015 Overview (04/10/2020): Acne (706.1) Onset: 11/11/2015 Added by: Betsy Chauhan Extrinsic asthma 02/05/2013 Overview (04/10/2020): Asthma (493.00) Onset: 02/05/2013 Added by: Dalia Piña Social History Tobacco Use Types Packs/Day Years Used Date Smoking Tobacco: Never Smokeless Tobacco: Never Alcohol Use Standard Drinks/Week Comments No 0 (1 standard drink = 0.6 oz pur e alcohol) Education Answer Date Recorded Are you interested in more education? Not on abran e 06/07/2022 Are you concerned about learning? Not on file 06/07/2022 No 06/07/2022 No 06/07/2022 Digital Access Answer Date Recorded No 07/06/2022 No 07/06/2022 No 07/06/2022 Reliable internet access at home? Not on file 07/06/2022 Device with a working camera? Not on file Comments Unknown Sex and Gender Information Value Date Recorded Sex Assigned at Not on file Legal Sex Female 10:23 PM EDT Gender Identity Not on file Sexual Orientation Not on file Last Filed Vital Signs Vital Sign Reading Time Taken Comments Blood Pressure 105/60 04/10/2020 4:06 PM EST Pulse 62 04/10/2020 4:06 PM EST Temperature 36.9 C (98.5 F) 04/10/2020 4:06 PM EST Respiratory Rate 18 04/10/2020 4:06 PM EST Oxygen Saturation 98% 04/10/2020 4:06 PM EST Inhaled Oxygen Concentration - - Weight 63.5 kg (140 lb) 07/06/2017 1:55 PM EDT Height 157.5 cm (5' 2 ) 07/06/2017 1:55 PM EDT Body Mass Index 25.61 07/06/2017 1:55 PM EDT Plan of Treatment Health Maintenance Due Date Last Done Comments POTASSIUM LEVEL 2001 DEPRESSION SCREENING 2013 SMOKING Hx and SMOKELESS TOBACCO SCREENING 2014 CHLAMYDIA SCREENING 2017 MENINGOCOCCAL VACCINES (B) (1 of 2 - Standard) 2017 HEPATITIS C SCREENING 2019 HIV ONE-TIME SCREENING (18-65 YEARS) 2019 PNEUMOCOCCAL VACCINES (0-49 years) (1 of 2 - PCV) 2020 10/12/2002, 2001, 2001, Additional history exists PAP SMEAR 2022 Adult Td,Tdap Booster 06/22/2022 06/22/2012 COVID-19 VACCINE ( - season) 2023 HIB VACCINES Completed 06/14/2002, 09/12, 2001, Additional history exists HPV VACCINES Completed 02/05/2013, 09/10, 07/24/2012 MENINGOCOCCAL VACCINES (ACWY) Completed 10/14/2018, 07/24/2012 HEPATITIS A VACCINES Aged Out No long er eligible based on patient's age to complete this topic Medical Devices Not on file Insurance O POS EPO O POS EPO [address] [place] [id number] [facility] E[facility] E[facility] POS [facility]PO POS EPO POS EPO [facility] POS EPO Care Teams Radius Corner Machine Operator Relationship Specialty Start Date End Date Betsy hCauhan DO PCP - General Pediatrics 04/10/20 Additional Source Comments The information contained in this document represents components of the legal health record. It is not the complete legal health record.[facility]
--- OUTSIDE RECORDS SUMMARY | 2024-09-10 13:10 | XMS_ITS | Encounter Summary ---
Author Organization [facility] Address [address] [place] [address] Phone Care Team Providers Care Resourcing Advisor Name Role Phone Catherine Aj MD Primary Care Provider [phone] Reason for Visit * Reason Comments Med Refill Encounter Details Date Type Department Care Team (Late st Contact Info) Description 10/13/2018 Refill [facility] [address] [place] [place] [address] Betsy Chauhan DO Other acne; Intractable chronic [...] migrainosus documented in this encounter Care Teams Resourcing Advisor Relationship Specialty Start Date End Date Catherine Aj MD PCP - General Pediatrics 05/26/20 documented as of this encounter
[2024-09-10 13:14] VITALS: BP 111/65; PULSE 74; RESP 14; TEMP 36.5; O2SAT 98; BMI 28.2
--- NOTE | 2024-09-10 13:14 | MHC.PC.OV ---
Vital Signs 09/10/24 13:14 Height 5 ft 2 in Weight 154 lb BMI 28.2 BP 111/65 Respiration 14 Pulse 74 Pulse Source Pulse Oximeter Temp 97.7 F Temp Source Temporal Artery Scan Pulse Oximetry (%) 98 Oxygen Delivery Method Room Air Intake Visit Reasons: 3 month f/u Catheterization Laboratory Technician Required: No Accompanied by: Self / Same As Patient Allergies amoxicillin Allergy (Mild, Verified 09/10/24 14:26) Hives Medication List - Last Reconciled 09/10/24 by Destiny Posey PA-C cetirizine 10 mg PO DAILY cholecalciferol (vitamin D3) 125 mcg PO DAILY clascoterone 1% (Winlevi) 1 appl topical DAILY montelukast 10 mg PO QPM norethindrone-ethin estradiol 1-35 mg-mcg (21) (Nortrel) 1 tab PO DAILY rizatriptan 10 mg PO DAILY spironolactone 50 mg PO BID 90 days topiramate 100 mg PO DAILY tretinoin 0.05% (Retin-A) appl topical Tobacco use date assessed: 09/10/24 Dental Screening Dental Screen Date: 06/01/24 Did you have a dental visit in the last 12 months?: Yes Did you have a dental problem in the last 6 months where you did not have access to dental care?: No Was dental information given to patient?: Patient has dentist HPI 3 month f/u HPI Details The patient is a 24-year-old female presenting for a follow-up visit. The patient has a family history of hereditary hemochromatosis, with her father diagnosed and undergoing therapeutic phlebotomy. Her mother suspects she might be a carrier, though she was informed that both genes were inherited from her father, which was deemed unlikely by the email designer. Recent laboratory tests showed normalization of previously elevated iron levels, with iron decreasing from 184 to 106, total saturation from 53 to 31, and ferritin from 31 to 15. The hematocrit level is slightly below normal at 36.8, with normal being 37. The patient is menstruating, which may prevent iron overload despite being a potential carrier of hemochromatosis. She was advised to avoid iron supplements, excessive alcohol, and red meat as preventative measures. COUNT INCLUDES THE [facility] Medical History High total iron binding capacity Vitamin D deficiency Skin lesion of right arm Family history of diabetes mellitus Acne Overweight with body mass index (BMI) of 26 to 26.9 in adult Establishing care with new doctor, encounter for Carrier of hemochromatosis HFE gene mutation Cyst of ear canal Cervical cancer Migraine headache Surgical History Goodman teeth removed Family History Father No problems noted. Mother Family history of thyroid problem Maternal Grandfather Throat cancer Paternal Grandfather Diabetes Father Hemochromatosis Paternal Uncle Hemochromatosis Family/Other Heart problem Maternal Grandfather Heart problem Social History Housing: House Alcohol intake: current Alcohol intake frequency: holidays/special occasions only Patient Tobacco Use Status: Never used Tobacco service: No Current occupational status: employed Cognitive needs: No Hearing needs: No Vision needs: Yes (rx contacts/glasses) Questionnaire PHQ-9 Over the last 2 weeks, how often have you been bothered by any of the following problems? 1. Little interest or pleasure in doing things: not at all 2. Feeling down, depressed, or hopeless: not at all 3. Trouble falling or staying asleep, or sleeping too much: not at all 4. Feeling tired or having little energy: not at all 5. Poor appetite or overeating: not at all 6. Feeling bad about yourself - or that you are a failure or have let yourself or your family down: not at all 7. Trouble concentrating on things, such as reading the newspaper or watching television: not at all 8. Moving or speaking so slowly that other people could have noticed. Or the opposite - being so fidgety or restless that you have been moving around a lot more than usual: not at all 9. Thoughts that you would be better off or of hurting yourself in some way: not at all Total score: 0 Depression Screening Interpretation: Negative Depression Screening Done: Yes 94616 - PHQ-9 Billing: Yes Source: Developed by Drs. Durga Walters, Tricia Osullivan, Jason Jacobs and colleagues, with an educational jillian from [email or web address]. Thrive Questionnaire Date Thrive assessed: 06/01/24 I am a: Patient What is your living situation today?: I have a steady place to live Within the past 12 months, did the food you bought not last and you didn't have the money to get more?: Never true Within the past 12 months, did you worry whether your food would run out before you got money to buy more?: Never true Do you have trouble paying for medicines?: No Do you have trouble getting transportation to medical appointments?: No Do you have trouble paying your heating and electricity bill?: No Do you have trouble taking care of your child, family member or friend?: No Do you have trouble with day-to-day activities such as bathing, preparing meals, shopping, managing finances, etc.?: No Are you currently unemployed and looking for a job?: No Are you interested in more education?: No Please select the resources that you would like help with: None THRIVE Score: 0 AUDIT C Alcohol Use Questionnaire (AUDIT-C) 1. How often do you have a drink containing alcohol?: Monthly or less 2. How many drinks containing alcohol do you have on a typical day when you are drinking?: 1 or 2 3. How often do you have six or more drinks on one occasion?: Never Total Score: 1 Score Reviewed/Action Taken: No GEORGE-7 AMB Questionnaire GEORGE-7 Date GEORGE - 7 assessed: 06/01/24 Feeling nervous, anxious, or on edge: 2 = More than half the days Not being able to stop or control worryin = More than half the days Worrying too much about different things: 2 = More than half the days Trouble relaxin = Not at all Being so restless that it is hard to sit still: 0 = Not at all Becoming easily annoyed or irritable: 0 = Not at all Feeling afraid as if something awful might happen: 0 = Not at all Total GEORGE-7 score (0-4 normal; 5-9 mild; 10-14 moderate; 15-21 severe): 6 Source: Developed by Drs. Durga Walters, Tricia Osullivan, Jason Jacobs and colleagues, with an educational jillian from [employer] GEORGE-7 Assessment Billing GEORGE-7 Assessment Tool: GEORGE-7 Assessment 88811 Review of Systems Const Details: - General: Denies any acute complaints All systems reviewed & are unremarkable except as noted in HPI and below Physical exam (Primary Care) Vital Signs: Last Vital Signs Temp 97.7 F 09/10/24 13:14 Pulse 74 09/10/24 13:14 Resp 14 09/10/24 13:14 BP 111/65 09/10/24 13:14 Pulse Ox 98 09/10/24 13:14 Oxygen Delivery Method Room Air 09/10/24 13:14 Care Plan Goal for BP management: <140/90 at Goal BMI result Body Mass Index 28.2 BMI Assessment/Plan discussion: High BMI High, discussed plan: lifestyle, weight reduction, dietary, physical activity and alcohol moderation Tobacco/Smoking Status: Tobacco use Status Tobacco use date assessed 09/10/24 09/10/24 13:16 Patient Tobacco Use Status Never used Tobacco 09/10/24 13:16 PHQ-9: PHQ-9 Score PHQ-9: Total score 0 09/10/24 13:23 Depression Screening Interpretation: Negative Thrive Assessment: Date of Thrive Assessment Date Thrive assessed 06/01/24 09/10/24 13:16 Const Other: Appearance: Alert. Oriented X3. No acute distress. Head: Normal external exam. Normocephalic. Atraumatic. Eyes: Pupils are equal, round, and reactive to light. Extraocular movements intact. Conjunctiva and sclera normal. Eyelids normal. Throat: Pharynx normal. Uvula midline. Moist mucous membranes. Neck: Normal inspection. Neck supple. Full range of motion. Cardiovascular: Normal heart rate and rhythm. Respiratory: No respiratory distress. Painless inspiration. Back: Full range of motion noted. Skin: Skin warm and dry. Normal skin color. Extremities: Extremities exhibit normal range of motion. Results Reviewed Results Reviewed: - Labs: CBC normal, iron levels normalized, hematocrit slightly below normal at 36.8 Coding Level of Care Code Est Pt Level 4 (78887) Complex EM visit Add On G2211 Diagnoses Carrier of hemochromatosis HFE gene mutation Z14.8 Additional Codes GEORGE-7 Assessment Billing - GEORGE-7 Assessment Tool: GEORGE-7 Assessment 17994 ([id number]) PHQ-9 - 36681 - PHQ-9 Billing: Yes ([id number]) Assessment & Plan Assessment & Plan (1) Carrier of hemochromatosis HFE gene mutation: Code(s): Z14.8 - Genetic carrier of other disease Category: Medical Plan: The patient has a family history of hereditary hemochromatosis, with her father undergoing therapeutic phlebotomy. She was advised to avoid iron supplements, excessive alcohol, and red meat to prevent iron overload. Follow-up in three months was recommended to monitor her condition. Plan Plan Patient was informed and verbally consented to the use of an ambient scribe for clinic note documentation during this visit. 1. Family History Of Hereditary Hemochromatosis The patient has a family history of hereditary hemochromatosis, with her father undergoing therapeutic phlebotomy. She was advised to avoid iron supplements, excessive alcohol, and red meat to prevent iron overload. Follow-up in three months was recommended to monitor her condition. During the visit, we discussed the patient's family history of hereditary hemochromatosis and the importance of monitoring her iron levels. I advised her to avoid iron supplements, excessive alcohol, and red meat to prevent potential iron overload. She is following up with hematology in three months to reassess her condition and adjust the management plan as necessary. She is following up with us yearly. Although she will call us if she needs any sooner appointments. Patient Instructions: - Avoid iron supplements, excessive alcohol, and red meat. - Schedule a follow-up appointment in three months. - Contact the clinic if any new symptoms arise or if there are questions about the condition.
== END 2024-09-10 13:37 | disposition home or self-care (01) ==
LOC: HO.HMCSH 13:09
PROVIDERS: PCP Internal Medicine; Visit Provider Physician Assistant Medical
DX: Z14.8 Genetic carrier of other disease (principal)

== ENCOUNTER → 2024-09-10 13:09 | Outpatient (BNVA) | payer OTHER, SELFPAY | PROVIDERS: PCP Internal Medicine; Visit Provider Physician Assistant Medical | DX: Z76.89 Persons encountering health services in other specified circumstances (principal); Z14.8 Genetic carrier of other disease; Z13.31 Encounter for screening for depression | CPT/HCPCS: 96127 ==